=== PATIENT | female | born 1975 ===

== ENCOUNTER 2019-11-07 23:59 | Emergency (ER) | payer OTHER, SELFPAY ==
[2019-11-08 00:01] VITALS: BP 151/108; PULSE 102; RESP 17; TEMP 36.7; O2SAT 98; BMI 38.7
--- NOTE | 2019-11-08 00:14 | W.ED.WOUNDLC ---
HPI - Wound/Laceration General: Chief Complaint: Wound/Laceration Stated Complaint: Needle stick Time Seen by Provider: 11/08/19 00:09 Source: patient Mode of arrival: ambulatory Limitations: no limitations History of Present Illness: HPI narrative: Patient is a 44-year-old female here for a needlestick exposure to her right index finger. Patient is an employee in the emergency department and states she was picking up a needle from the table that was not fully retracted and accidentally poked herself. Patient admittedly is hepatitis C positive. Onset (ago): minute(s) Extremity Location: Right: hand Place: work Patient tetanus UTD: Yes Context: accidental Associated symptoms: Reports no associated symptoms; Denies chills or fever(s) Review of Systems Const: Denies: fever or chills Skin/Breast: Reports: other (needle stick R index finger) [facility] ED PFSH: Social History Smoking and tobacco status: current every day smoker Physical Exam Const: COMMON NORMALS: no apparent distress and no limitations Extremity: COMMON NORMALS: normal to inspection and full ROM Skin: COMMON NORMALS: no rashes or lesions noted GENERAL SKIN EXAM: no rashes or lesions noted OTHER: no puncture wounds noted Course Vital Signs: Vital signs: Vital Signs Temperature 98.1 F 11/08/19 00:01 Pulse Rate 102 H 11/08/19 00:01 Respiratory Rate 17 11/08/19 00:01 Blood Pressure 151/108 11/08/19 00:01 Pulse Oximetry 98 11/08/19 00:01 MDM - Wound/Laceration MDM Narrative: Medical decision making narrative: Patient scrubbed site copiously with Betadine and soapy water. Needlestick employee packet was filled out. Patient will have employee exposure labs drawn. Patient will follow-up with Worker's Comp as directed. Her tetanus is up-to-date. She does not wish to begin HIV PEP. Discharge Plan Discharge Patient Disposition: Home, Self-Care Clinical Impression: Needle stick injury of finger Condition: Stable Discharge Orders: Discharge Order (Routine); Ordered 11/08/19 Ordered By: Idalia Velasquez Activity Restrictions/Additional Instructions: Follow up with Worker's Comp as directed. Coding Level of Care Code ED [employer]ic for [employer] Pressley
--- NOTE | 2019-11-08 00:56 | PC.NURSE ---
Agree with assessment provided.
[2019-11-08 02:38] LABS: HIV 1 & 2 Antibody Non-Reactive (Non-Reactiv); HIV 1 & 2 Antigen Non-Reactive (Non-Reactiv)
[2019-11-08 02:45] LABS: Hepatitis A Antibody IgM. Non-Reactive (Nonreactive); Hepatitis B Core IgM Non-Reactive (Nonreactive); Hepatitis B Surface Antigen. Non-Reactive (Nonreactive); Hepatitis C Virus Antibody Non-Reactive (Nonreactive)
== END 2019-11-08 01:53 | disposition home or self-care (01) ==
PROVIDERS: Emergency Provider Physician Assistant
DX: S69.81XA Other specified injuries of right wrist, hand and finger(s), initial encounter (principal); B19.20 Unspecified viral hepatitis C without hepatic coma; F17.200 Nicotine dependence, unspecified, uncomplicated; W46.1XXA Contact with contaminated hypodermic needle, initial encounter; Y92.238 Other place in hospital as the place of occurrence of the external cause
CPT/HCPCS: 80074; 87806; 99281; 99282

== ENCOUNTER 2020-11-16 10:46 | Outpatient (CLI) | payer OTHER, SELFPAY ==
--- NOTE | 2020-11-16 10:51 | MM_ITS ---
WS: [id number] BILATERAL DIGITAL SCREENING MAMMOGRAPHY WITH CAD CLINICAL INFORMATION: SCREENING HISTORY: Screening mammogram. No current complaints. COMPARISON: None. TECHNIQUE: Bilateral CC and MLO views. FINDINGS: Scattered fibroglandular densities bilaterally. No suspicious focal mass, asymmetry, calcifications, or architectural distortion. No evidence of malignancy. Punctate calcifications. MM/[id number] IMPRESSION: BI-RADS: 2-Benign FOLLOW UP: 1 Year Follow-up Recommend return to annual screening mammography.
== END 2020-11-16 10:47 | disposition home or self-care (01) ==
LOC: RADSHAW 10:49
PROVIDERS: PCP Nurse Practitioner Family; Visit Provider Nurse Practitioner Family
DX: Z12.31 Encounter for screening mammogram for malignant neoplasm of breast (principal)
CPT/HCPCS: 77067

== ENCOUNTER 2021-09-25 02:30 | Outpatient (CLI) | payer OTHER, SELFPAY ==
[2021-09-25 04:24] LABS: Adenovirus Not Detected (NOT DETECT); Chlamydia Pneumoniae Not Detected (NOT DETECT); Coronavirus 229E,HKU1,NL63,OC4 Not Detected (NOT DETECT); Human Metapneumovirus Not Detected (NOT DETECT); Human Rhinovirus/Enterovirus Not Detected (NOT DETECT); Influenza A Not Detected (NOT DETECT); Influenza A H1 Not Detected (NOT DETECT); Influenza A H1-2009 Not Detected (NOT DETECT); Influenza A H3 Not Detected (NOT DETECT); Influenza B Not Detected (NOT DETECT); Mycoplasma Pneumoniae Not Detected (NOT DETECT); Parainfluenza Virus Type 1 Not Detected (NOT DETECT); Parainfluenza Virus Type 2 Not Detected (NOT DETECT); Parainfluenza Virus Type 3 Not Detected (NOT DETECT); Parainfluenza Virus Type 4 Not Detected (NOT DETECT); Respiratory Syncytial Virus A Not Detected (NOT DETECT); Respiratory Syncytial Virus B Not Detected (NOT DETECT); SARS-COV-2 Not Detected (NOT DETECT)
== END 2021-09-25 02:31 | disposition home or self-care (01) ==
PROVIDERS: PCP Nurse Practitioner Family; Visit Provider Nurse Practitioner Family
DX: J06.9 Acute upper respiratory infection, unspecified (principal)
CPT/HCPCS: 87635